=== PATIENT | male | born 1960 | race Caucasian/White ===

== ENCOUNTER 2020-09-27 14:55 | Emergency (ER) | payer MEDICARE, MEDICAID, SELFPAY ==
[2020-09-27] VITALS (22 sets, daily range): BP systolic 102–149; BP diastolic 68–92; PULSE 68–104; RESP 11–22; O2SAT 88–99
--- NOTE | ~2020-09-27 | CT_ITS ---
EXAMINATION: CTA chest PE protocol DATE: 09/27/2020 18:14 INDICATION: Shortness of breath and chest pain for 2 days. History of COPD. TECHNIQUE: Computed tomography angiography (CTA) of the chest was performed with 100 mL Omnipaque-350 intravenous contrast timed to evaluate the pulmonary arteries. Coronal maximum intensity projection 3D-reconstructions were created by the technologist. Automated exposure control and iterative reconst ruction technique were employed. Exam dose: 814.06 mGy-cm total exam DLP. COMPARISON: 09/27/2020 PA and lateral chest FINDINGS: There is diagnostic contrast enhancement of the pulmonary arteries and no evidence of pulmo nary embolism. No thoracic aortic aneurysm or dissection. No hilar or mediastinal mass lesion or lymphadenopathy. Normal heart size. No pericardial or pleural effusion. Moderately prominent emphysematous changes of the lungs. No pulmonary infiltrate or consolidation. No pleural effusion or pneumothorax. Included upper abdominal structures are unremarkable. No suspicious osteolytic or osteoblastic lesions. IMPRESSION: No evidence of pulmonary embolism Emphysema Reviewed, dictated and finalized at [facility] Reviewed, dictated and finalized at [facility].
--- NOTE | ~2020-09-27 | XR_ITS ---
XR chest 2V DATE: 09/27/2020 15:29 INDICATION: Chest pain, shortness of breath, left chest pressure. History of COPD. TECHNIQUE: PA and lateral views COMPARISON: None FINDINGS: There is bilateral hyperinflation and flattening of the diaphragm consistent with clinical history of COPD. There is minimal atelectasis or fibrotic change at the lung bases; otherwise no pulmonary infiltrate or consolidation or pulmonary mass lesion is evident. No hilar or mediastinal enlargement. Normal heart size. No osteolytic or osteoblastic lesions are noted. IMPRESSION: COPD Minimal atelectasis or fibrotic change at the lung bases. Reviewed, dictated and finalized at [facility].
--- NOTE | 2020-09-27 15:15 | ECG_ITS ---
Measurements Intervals [place] Rate: 102 P: 78 VT: 165 QRS: 79 QRSD: 93 T: 73 QT: 317 QTc: 414 Interpretive Statements SINUS TACHYCARDIA DELAYED PRECORDIAL R/S TRANSITION BASELINE ARTIFACT- I, V2-V6 BORDERLINE ECG Electronically Signed On 09-27-2020 15:26:26 CDT by Jose Antonio Ceron D.O.
--- NOTE | 2020-09-27 15:19 | ED.GENADULT ---
HPI - General Adult General Chief complaint: Shortness of Breath/Dyspnea Stated complaint: SOB X3D Time Seen by Provider: 09/27/20 15:05 Source: patient History of Present Illness HPI narrative: Patient is a 60 y/o male complaining of midsternal chest pain starting 3 days ago. He describes his chest pain as a soreness. He rates his pain as 2/10. There is no pain radiation. There is no alleviating or exacerbating factor. He also has SOB and cough. He is on home O2 for COPD. He states that he had a scheduled appointment with his support technician today and his pulse ox was 84-85% during his office visit. He was then sent to ED. Related Data Home Medications Medication Instructions Recorded Confirmed buspirone mg 09/27/20 fluticasone furoate-vilanterol INHALATION 09/27/20 [Breo Ellipta] furosemide 09/27/20 linaclotide [Linzess] mcg 09/27/20 losartan 09/27/20 mirtazapine mg 09/27/20 umeclidinium [Incruse Ellipta] INHALATION 09/27/20 Allergies Allergy/AdvReac Type Severity Reaction Status Date / Time No Known Allergies Allergy Verified 09/27/20 15:46 Review of Systems Constitutional: Constitutional: Denies chills, Denies fever(s), Denies headache(s) and Denies weakness Eyes: Eyes: Denies blurry vision ENT: Denies headache(s) and Denies neck pain Cardiovascular: Cardiovascular: Reports chest pain and Reports dyspnea Respiratory: Respiratory: Reports cough and Reports dyspnea Gastrointestinal: Gastrointestinal: Denies abdominal pain, Denies diarrhea, Denies nausea and Denies vomiting Genitourinary: Genitourinary: Denies hematuria and Denies dysuria Musculoskeletal: Musculoskeletal: Denies back pain and Denies neck pain Neurologic: Denies headache(s) and Denies weakness Exam Const: General: no acute distress and well developed Orientation/consciousness: oriented to person, oriented to place, oriented to time and patient oriented x3 HENMT: Head: normocephalic Ears: external ears normal General nose exam: Normal external nose present Eyes: General: appearance normal, both eyes and all related structures Conjunctivae: conjunctivae normal Neck: Neck: normal visual inspection and full ROM Chest: Chest palpation & inspection: normal inspection of the chest and no tenderness Resp: Effort & Inspection: normal respiratory effort Auscultation: clear to auscultation bilaterally Cardio: Rate: regular rate Rhythm: regular rhythm GI: GI Palp: No abdominal tenderness and Yes Soft to palpation Skin: General skin exam: normal color and turgor normal Neuro: General: oriented to person, oriented to place, oriented to time and patient oriented x3 Cognition (Neuro): normal cognition Extrem: General: normal to inspection, full ROM and no pedal edema Psych: Appearance: grossly normal Mental Status: mental status grossly normal Affect: normal affect Course Reevaluation(s) Reevaluation #1: Rechecked. Patient states that he feels better. Sat 94-95% on 3 L. Offered patient possible admission for observation. However, patient declined and wanted to be discharge. He is instructed to return if his symptoms worsen. Date: 09/27/20 Time: 19:07 Vital Signs Vital signs: Vital Signs Pulse Rate 103 H 09/27/20 15:05 Respiratory Rate 22 H 09/27/20 15:05 Blood Pressure 149/80 H 09/27/20 15:05 Pulse Oximetry 94 09/27/20 15:05 Pulse Rate 68 09/27/20 19:56 Respiratory Rate 20 09/27/20 19:56 Blood Pressure 109/68 09/27/20 19:56 Pulse Oximetry 99 09/27/20 19:56 Medical Decision Making Vital Signs Vital Signs: Vital Signs Pulse Rate 103 H 09/27/20 15:05 Respiratory Rate 22 H 09/27/20 15:05 Blood Pressure 149/80 H 09/27/20 15:05 Pulse Oximetry 94 09/27/20 15:05 Pulse Rate 68 09/27/20 19:56 Respiratory Rate 20 09/27/20 19:56 Blood Pressure 109/68 09/27/20 19:56 Pulse Oximetry 99 09/27/20 19:56 Lab Data Result diagrams: 09/27/20 15:20
[2020-09-27 15:25] LABS: Basophils Absolute Auto 0.1 K/mm3 (0.0-0.1); Basophils Percent Auto 0.5 % (0.2-1.2); Eosinophils Absolute Auto 0.2 K/mm3 (0-0.3); Eosinophils Percent Auto 2.1 % (0-4.4); Hematocrit 44.7 % (42.0-52.0); Hemoglobin 14.1 g/dL (14.0-18.0); Immature Granulocyte Absolute 0.05 K/mm3 (0.00-0.031); Immature Granulocyte Percent A 0.5 % (0-0.5); Lymphocytes Absolute Auto 1.24 K/mm3 (0.9-3.2); Lymphocytes Percent Auto 12.4 % (18.3-44.2); Mean Corpuscular HGB Conc 31.5 g/dl (32-36); Mean Corpuscular Hemoglobin 27.4 pg (26-34); Mean Corpuscular Volume 86.8 fl (80-100); Mean Platelet Volume 9.8 fl (7.4-10.4); Monocytes Absolute Auto 0.6 K/mm3 (0.1-0.6); Monocytes Percent Auto 6.4 % (2.6-8.5); Neutrophils Absolute Auto 7.8 K/mm3 (1.3-6.7); Neutrophils Percent Auto 78.1 % (45.5-73.1); Platelet Count Result 261 k/mm3 (150-375); Red Blood Count 5.15 M/mm3 (4.6-6.20); Red Cell Distribution Width 14.4 % (11.5-14.5)
[2020-09-27 15:36] LABS: Anion Gap 8 mmol/L (8-16); Blood Urea Nitrogen 16 mg/dL (9-20); Calcium 9.3 mg/dL (8.4-10.2); Carbon Dioxide 30 mmol/L (22-30); Chloride 102 mmol/L (98-107); Estimated CRCL calculation 120 ml/min; Estimated Glomerular Filt Rate > 60; Glucose 133 mg/dL (75-110); Potassium 4.1 mmol/L (3.4-5.0); Sodium 140 mmol/L (137-145)
[2020-09-27 15:42] LABS: INR 0.9; Prothrombin Time 12.9 Seconds (11.1-14.7)
[2020-09-27 15:43] LABS: Partial Thromboplastin Time 30.3 SECONDS (22.3-36.8)
[2020-09-27 15:48] LABS: Troponin I < 0.012 ng/mL (0.000-0.034)
[2020-09-27] MEDS: ASPIRIN 81 MG CHEWABLE TABLET 324 MG PO (15:54)
[2020-09-27 16:48] LABS: D Dimer 1.16 ug/mL (<0.48)
[2020-09-27 17:07] LABS: NT Pro B Type Natriuretic Pept 32 pg/mL (5-100)
[2020-09-27 18:38] LABS: Troponin I < 0.012 ng/mL (0.000-0.034)
== END 2020-09-27 19:57 | disposition home or self-care (01) ==
PROVIDERS: Emergency Provider Emergency Medicine; PCP Physician Assistant
DX: J44.9 Chronic obstructive pulmonary disease, unspecified (principal); R07.9 Chest pain, unspecified; R00.0 Tachycardia, unspecified
CPT/HCPCS: 36415; 71046; 71275; 80048; 83880; 84484; 85025; 85380; 85610; 85730; 93005; 99284; A9270; Q9967